=== PATIENT | female | born 1950 | race Caucasian/White ===

== ENCOUNTER 2020-01-26 03:57 | Inpatient (IN) | payer MEDICARE ==
[2020-01-26] VITALS (8 sets, daily range): BP systolic 143–229; BP diastolic 53–89
[~2020-01-26] VITALS: Ht 170.2 cm; Wt 105.2 kg
[2020-01-26] MEDS ORDERED: NORVASC 2.5 MG2.5 M1 PO (04:49)
[2020-01-26 05:04] LABS: ABSOLUTE BASOPHILS 0.1 thou/uL (0.0-0.2); ABSOLUTE LYMPHOCYTES 0.9 thou/uL (0.8-5.3); ABSOLUTE MONOCYTES 0.4 thou/uL (0.0-1.2); BASOPHILS 0.7 %; EOSINOPHILS 0.4 %; HEMATOCRIT 40.8 % (37.0-47.0); HEMOGLOBIN 13.8 gm/dL (12.0-15.0); LYMPHOCYTES 10.3 %; MCH 29.4 pg (26.0-34.0); MCHC 33.7 g/dL (28.0-37.0); MCV 87.1 fL (80.0-100.0); MONOCYTES 5.1 %; MPV 8.7 fl. (7.2-11.1); NUCLEATED RBCS 0 /100WBC; PLATELET COUNT* 292 thou/uL (150-400); POLYS 83.5 %; RBC 4.69 mil/uL (4.20-5.00); RDW-CV 14.2 % (10.5-14.5); WBC 8.4 thou/uL (4.0-11.0)
[2020-01-26 05:12] LABS: CALCIUM 7.7 mg/dL (8.5-10.1); CREATININE 0.9 mg/dL (0.6-1.3); POTASSIUM 3.5 mmol/L (3.5-5.1)
[2020-01-26 05:17] LABS: APTT 24.5 Seconds (25.0-31.3); PROTIME 10.3 Seconds (9.20-11.50)
[2020-01-26 05:23] LABS: ALBUMIN 3.2 g/dL (3.4-5.0); TOTAL BILIRUBIN 0.3 mg/dL (<0.1-1.0); TOTAL PROTEIN 6.9 g/dL (6.4-8.2)
[2020-01-26 06:10] LABS: URINE BILIRUBIN NEGATIVE (Negative); URINE BLOOD NEGATIVE (Negative); URINE CLARITY CLEAR; URINE COLOR YELLOW; URINE GLUCOSE-RANDOM NEGATIVE (Negative); URINE KETONES NEGATIVE (Negative); URINE LEUKOCYTES-REFLEX 1+ (Negative); URINE NITRITE-REFLEX NEGATIVE (Negative); URINE PROTEIN TRACE (Negative); URINE SPECIFIC GRAVITY 1.025 (1.005-1.030); URINE UROBILINOGEN 0.2 E.U./dl (0.2-1.0)
[2020-01-26 06:21] LABS: BACTERIA-REFLEX >30 Many /HPF (None Seen); CASTS None Seen /LPF (None Seen); CRYSTALS None Seen /LPF (None Seen); MUCUS 0-3 Light strn/LPF (None Seen); SQUAMOUS 0-3 Few /LPF (0-3); URINE RBC 3-10 Few /HPF (0-2); URINE WBC-REFLEX >25 Many /HPF (0-5); WBC CLUMPS Moderate (None Seen)
--- NOTE | 2020-01-26 11:22 | EKG ---
[place] [address] ELECTROCARDIOGRAM REPORT Name: POPEYE HONG Room: [address] ADM IN .R.#: [id number] Admission: 01/26/20 Attend Phys: August pastrana Sa Discharge: Date of : 54 Date of Service: 01/26/20 0359 Report #: [id number] THIS REPORT FOR: //name// [facility] ED Test Date: 2020-01-26 Test Time: 03:59:40 Pat Name: POPEYE HONG Department: Room: [facility] Gender: F Optical Effects Layout Person: ALICIA : 1950 Requested By: Kate Farley Order Number: [id number] MD: Isidro Young Measurements Intervals [place] Rate: 77 P: 31 TX: 189 QRS: 4 QRSD: 105 T: 80 QT: 430 QTc: 487 Interpretive Statements Sinus rhythm LVH with secondary repolarization abnormality Borderline prolonged QT interval No previous ECG available for comparison Electronically Signed On 01-26-2020 11:20:57 CDT by Isidro Young [email or web address] <ELECTRONICALLY SIGNED> By: Rosemarie Young MD, [facility] 01/26/20 1120 0359 0359 Rosemarie Young MD, [facility] /EPI
--- NOTE | 2020-01-26 16:24 | NUR ---
PATIENT RESTING IN BED. UP WITH MAX ASSIST X2 TO CHAIR OR BSC. LEFT ARM AND LEG WEAKNESS. GOOD SENSATION TO BILASTERAL ARMS AND LEGS. LEFT HAND CUSTOMER SUPPORT MANAGER GOOD BUT POOR RESISTANCE TO GRAVITY WITH LEFT ARM. VSS. PATIENT IN NO APPARENT SIGNS OF DISTRESS AT THIS TIME.
[2020-01-26 19:42] LABS: AMP/METHAMP Negative (Negative); BARBITURATES Negative (Negative); BENZODIAZEPINES Negative (Negative); COCAINE Negative (Negative); METHADONE Negative (Negative); OPIATES Negative (Negative); PCP Negative (Negative); THC Negative (Negative)
[2020-01-27 03:07] LABS: GLYCOHEMOGLOBIN (HGB A1C) 5.4 % (4.8-5.6)
[2020-01-27 04:00] VITALS: BP 164/70
--- NOTE | 2020-01-27 05:20 | NUR ---
PT SLEPT MOST OF SHIFT. ASSESSMENT DOCUMENTED. MEDS GIVEN PER E-DEC. IV PATENT, FLUIDS INFUSING. PT REPORTED KNEE PAIN, DR NOTIFIED. PT INCONTINENT AT TIMES THIS SHIFT. PT REPOSITIONED THROUGH NIGHT. NIH DOCUMENTED. WILL CONTINUE WITH PLAN OF CARE.
[2020-01-27 05:31] LABS: CHOLESTEROL 203 mg/dL (<200); HDL CHOLESTEROL 49 mg/dL (>40); LDL CHOLESTEROL 128 mg/dL (<100); TC:HDL 4.1 Ratio (Not establshd); TRIGLYCERIDE 134 mg/dL (<150); VLDL 27 mg/dL (<40)
[2020-01-27 05:49] LABS: SERUM ASSESSMENT CLEAR
[2020-01-27 07:57] VITALS: BP 178/72
[2020-01-27 13:00] VITALS: BP 192/166
[2020-01-27 16:30] VITALS: BP 179/62
--- NOTE | 2020-01-27 18:06 | NUR ---
PATIENT RESTING IN BED. LEFT SIDE WEAKNESS TO BOTH ARM AND LEG. FULL SENSATION, FULL LEFT HAND IMPREGNATION OPERATOR, WIGGLES LEFT TOES, LEFT SHOUDER WEAKNESS. VSS. HOURLY ROUNDING COMPLETED FOR PATIENT SAFETY.
[2020-01-27 19:50] VITALS: BP 139/64
[2020-01-28] VITALS: BP 177/69
[2020-01-28 04:00] VITALS: BP 183/74
[2020-01-28 04:47] LABS: ABSOLUTE BASOPHILS 0.1 thou/uL (0.0-0.2); ABSOLUTE EOSINOPHILS 0.1 thou/uL (0.0-0.7); ABSOLUTE LYMPHOCYTES 1.6 thou/uL (0.8-5.3); ABSOLUTE MONOCYTES 0.5 thou/uL (0.0-1.2); ABSOLUTE NEUTROPHILS 3.5 thou/uL (1.6-8.1); EOSINOPHILS 2.3 %; HEMATOCRIT 37.3 % (37.0-47.0); HEMOGLOBIN 12.6 gm/dL (12.0-15.0); LYMPHOCYTES 27.5 %; MCH 29.7 pg (26.0-34.0); MCHC 33.8 g/dL (28.0-37.0); MCV 87.8 fL (80.0-100.0); MONOCYTES 9.4 %; MPV 8.7 fl. (7.2-11.1); NUCLEATED RBCS 0 /100WBC; PLATELET COUNT* 249 thou/uL (150-400); POLYS 59.8 %; RBC 4.25 mil/uL (4.20-5.00); RDW-CV 14.2 % (10.5-14.5); WBC 5.8 thou/uL (4.0-11.0)
[2020-01-28 05:26] LABS: CALCIUM 7.9 mg/dL (8.5-10.1); CREATININE 0.7 mg/dL (0.6-1.3); POTASSIUM 3.6 mmol/L (3.5-5.1)
[2020-01-28 08:00] VITALS: BP 137/77
--- NOTE | 2020-01-28 09:38 | EKG ---
[place] [address] ELECTROCARDIOGRAM REPORT Name: POPEYE HONG Room: [address] ADM IN M.R.#: [id number] Admission: 01/26/20 Attend Phys: August pastrana Sa Discharge: Date of : 54 Date of Service: 01/26/20 0633 Report #: [id number] THIS REPORT FOR: //name// [facility] Test Date: 2020-01-26 Test Time: 06:33:47 Pat Name: POPEYE HONG Department: Room: [address] Gender: F Build Technician: : 1950 Requested By: August Moyer Order Number: [id number] Leonor MD: Umesh Lopez Measurements Intervals [place] Rate: 94 P: 48 KS: 201 QRS: 8 QRSD: 100 T: 193 QT: 379 QTc: 474 Interpretive Statements Sinus rhythm Repol abnrm suggests ischemia, anterolateral Compared to ECG 01/26/2020 03:59:40 Left ventricular hypertrophy no longer present Electronically Signed On 01-28-2020 9:37:00 CDT by Umesh Lopez [email or web address] <ELECTRONICALLY SIGNED> By: Umesh Lopez MD, [facility] 01/28/20 0937 0633 Umesh Lopez MD, [facility] /EPI
--- NOTE | 2020-01-28 11:42 | 2DMMODE ---
[place] [address] 2 D/M-MODE ECHOCARDIOGRAM Name: POPEYE HONG Room: [address] ADM IN .Kate.#: [id number] Admission: 01/26/20 Attend Phys: August pastrana Sa Discharge: Date of : 54 Date of Service: 01/28/20 1141 Report #: [id number] THIS REPORT FOR: cc: LAYA - No family physician/PCP LAYA - No family physician/PCP Umesh Lopez MD [facility] ~ APPROVED REPORT Study performed: 01/28/2020 10:21:07 EXAM: Comprehensive 2D, Doppler, and color-flow Echocardiogram Patient Location: In-Patient Room #: 229 Status: routine BSA: 2.15 HR: 74 bpm BP: 183/74 mmHg Rhythm: NSR Other Information Study Quality: Good Indications CVA/TIA Echo Enhancing Agent Indication: Rule out Shunt Agent(s) / Amount(s) Used: Agitated Saline 10 cc 2D Dimensions IVSd: 14.63 (7-11mm) LVOT Diam: 20.87 (18-24mm) LVDd: 55.44 mm PWd: 11.82 (7-11mm) Ascending Ao: 31.96 (22-36mm) LVDs: 35.62 (25-40mm) Aortic Root: 32.58 mm Volumes Left Atrial Volume (Systole) LA ESV Index: 41.00 mL/m2 Aortic Valve AoV Peak Bill.: 1.31 m/s AO Peak Gr.: 6.84 mmHg LVOT Max P.87 mmHg AO Mean Gr.: 3.81 mmHg LVOT Mean P.00 [place] [address] 2 D/M-MODE ECHOCARDIOGRAM Name: POPEYE HONG Room: [address] IN ..#: [id number] Admission: 01/26/20 Attend Phys: August pastrana Sa Discharge: Date of : 54 Date of Service: 01/28/20 1141 Report #: [id number] LVOT Max V: 1.10 m/s AO V2 VTI: 28.13 cm LVOT Mean V: 0.64 m/s SHEILA (VTI): 2.99 cm2 LVOT V1 VTI: 24.60 cm Mitral Valve E/A Ratio: 0.86 MV Decel. Time: 310.79 ms MV E Max Bill.: 0.60 m/s MV PHT: 90.13 ms MVA (PHT): 2.44 cm2 TDI E/Lateral E': 7.50 E/Medial E': 5.45 Medial E' Bill.: 0.11 m/s Lateral E' Bill.: 0.08 m/s Pulmonary Valve PV Peak Bill.: 1.16 m/s PV Peak Gr.: 5.39 mmHg Left Ventricle The left ventricle is normal size. There is normal LV segmental wall motion. Mild concentric left ventricular hypertrophy. Left ventricular systolic function is normal. The left ventricular ejection fraction is within the normal range. LVEF is 55-60%. The left ventricular diastolic function is normal. Right Ventricle The right ventricle is normal size. The right ventricular systolic function is normal. Atria Left atrium is mildly dilated. The interatrial septum is intact with no evidence for an atrial septal defect. The right atrium size is normal. Aortic Valve Mild aortic valve sclerosis. No aortic regurgitation is present. There is no aortic valvular stenosis. Mitral Valve The mitral valve is normal in structure. There is no mitral valve regurgitation noted. No evidence of mitral valve stenosis. Tricuspid Valve The tricuspid valve is normal in structure. Trace tricuspid regurgitation. Unable [place] [address] 2 D/M-MODE ECHOCARDIOGRAM Name: POPEYE HONG Room: [address] IN M.R.#: [id number] Admission: 01/26/20 Attend Phys: August pastrana Sa Discharge: Date of : 54 Date of Service: 01/28/20 1141 Report #: [id number] Pulmonic Valve The pulmonary valve is normal in structure. Trace pulmonic regurgitation. Great Vessels The aortic root is normal in size. IVC is normal in size and collapses >50% with inspiration. Pericardium There is no pericardial effusion. <Conclusion> Mild concentric left ventricular hypertrophy. LVEF is 55-60%. Left atrium is mildly dilated. Mild aortic valve sclerosis. The interatrial septum is intact with no evidence for an atrial septal defect. <ELECTRONICALLY SIGNED> By: Umesh Lopez MD, FACC 01/28/20 1141 1141 1141 Umesh Lopez MD, FACC /INF
[2020-01-28 12:00] VITALS: BP 173/79
--- NOTE | 2020-01-28 16:13 | NUR ---
Pt is A&O. Resides at home alone. Independent. No DME. No hx of HH or SNF. Pt discharging to acute rehab today to room 325, CM updated Pt's dtr and dtr in agreement POC. CM also confirmed with dtr that dtr would be available post dc if Pt needs additional 24 care.
[2020-01-28] MEDS ORDERED: NORVASC10 MG PO (16:27)
--- NOTE | 2020-01-28 16:46 | NUR ---
PT RESTING IN BED THROUGHOUT SHIFT. PT UP WITH PT TO CHAIR. PT MODERATE ASSIST WITH TRANSFER. VOIDING PER BEDPAN. PT TOLERATING PO WELL. DENIES PAIN. ABLE TO MOVE RIGHT HAND AND GRASP BUT UNABLE TO MOVE ARM OT RLE. PLAN TO MOVE TO REHAB UNIT THIS PM
[2020-01-28] MEDS ORDERED: LIPITOR40 MG PO (16:57)
[2020-01-28 16:58] VITALS: BP 195/75
[2020-01-28] MEDS ORDERED: ASA81BEC PO (16:59)
[2020-01-28] MEDS ORDERED: COZAAR 25 MG TA25 M1 PO (17:01)
[2020-01-28] MEDS ORDERED: CEFUROXIME500 MG PO (17:02)
[2020-01-28 17:57] VITALS: BP 195/75
== END 2020-01-28 18:23 | DRG 65 ==
LOC: M.ERS 03:57 → M.TBA-ER 05:28 → M.2W 05:28
PROVIDERS: Internal Medicine; Personal Emergency Response Attendant; ADMIT Family Medicine
DX: I63.9 Cerebral infarction, unspecified (principal); G81.94 Hemiplegia, unspecified affecting left nondominant side; I16.1 Hypertensive emergency; F41.9 Anxiety disorder, unspecified; I10 Essential (primary) hypertension; Z79.899 Other long term (current) drug therapy; Z91.09 Other allergy status, other than to drugs and biological substances

== ENCOUNTER 2020-01-28 17:05 | Inpatient (IN) | payer MEDICARE ==
[~2020-01-28] VITALS: Ht 170.2 cm; Wt 98.9 kg
[~2020-01-28 17:05] MED LIST: ASA81BEC PO; CEFUROXIME500 MG PO; COZAAR 25 MG TA25 M1 PO; LIPITOR40 MG PO; NORVASC 2.5 MG2.5 M1 PO; NORVASC10 MG PO
[2020-01-28 19:05] VITALS: BP 180/70
--- NOTE | 2020-01-28 23:24 | NUR ---
ARRIVED ON DAY SHIFT AT 1835. ADMISSION REHAB TOOL COMPLETED. VOIDS PER BEDPAN. ADMITTED WITH RIGHT CVA. HAS LEFT HEMIPARESIS. PATIENT IS RIGHT HANDED. A/O X 4. VERY PLEASANT.
--- NOTE | 2020-01-29 05:10 | NUR ---
ASSISTED WITH URINAL X ONE DURING THE NIGHT. DESIRAE CARE GIVEN. HOURLY ROUNDING IN PROGRESS.
[2020-01-29 06:47] LABS: HEMATOCRIT 38.1 % (37.0-47.0); HEMOGLOBIN 13.1 gm/dL (12.0-15.0); MCH 29.9 pg (26.0-34.0); MCHC 34.3 g/dL (28.0-37.0); MCV 87.3 fL (80.0-100.0); MPV 8.7 fl. (7.2-11.1); RBC 4.37 mil/uL (4.20-5.00); RDW-CV 14.6 % (10.5-14.5)
[2020-01-29 06:56] LABS: CALCIUM 8.4 mg/dL (8.5-10.1); CREATININE 0.8 mg/dL (0.6-1.3); POTASSIUM 3.2 mmol/L (3.5-5.1)
[2020-01-29 09:30] VITALS: BP 182/66
--- NOTE | 2020-01-29 12:27 | NUR ---
Nutrition: Pt admitted to rehab s/p Rt CVA. She is eating well, heart healthy diet. Albumin 3.2. Wt: 226#. No noted significant wt changes. Per report over phone, pt is eating well. No nutrition concerns at this time. Low risk.
--- NOTE | 2020-01-29 16:44 | NUR ---
Initial assessment for inpt rehab: Pt lived at home alone prior to hospitalization. Pt has supportive dtr who would be able to assist at dc if needed. Pt does not have any DME or any known hx of HH or SNF. SW to continue to follow to assist with safe dc planning.
[2020-01-29 18:30] VITALS: BP 149/63
--- NOTE | 2020-01-29 18:43 | NUR ---
ALERT AND ORIENTED X4. UP WITH 2 ASSIST, GAIT BELT AND WALKER. NO C/O PAIN. CONTINENT OF URINE. HAS LEFT SIDED WEAKNESS. REPLACING LOW MAGNESIUM AND POTASSIUM. USES CALL LIGHT WITHIN REACH. FALL PRECAUTIONS IN PLACE. BED ALARM AND CHAIR ALARM USED. HAS IV IN LEFT AC.
[2020-01-29 19:50] VITALS: BP 161/72
--- NOTE | 2020-01-30 01:52 | NUR ---
ASSUMED CARE @ 1936-.AWAKE IN BED W/ HOB UP.WEAK-LUE & LEFT LE. WATCHING TV.BED ALARM ALREADY ON @ 1936.2ND DOSES OF K TAB & MG OXIDE TAB BOTH GIVEN ORAL @ 2207.C/O ITCHING-BACK.NOTED RAISED RASHES.WANTS WARM TOWEL ON RASHES & APPLIED.WARM LOTION ALSO APPLIED @ 2244.HIMS CALLED W/ YOU CALL . DR ALVAREZ RETURNED CALL @ 230 & ORDER GIVEN.BENADRYL 25 MG ORAL GIVEN @ 2346.SLEEPING @ 0000-.ON HOURLY ROUNDS.DISHA DOINMG ODD HOUR ROUNDS.
--- NOTE | 2020-01-30 05:23 | NUR ---
SLEPT LATE @ 0000-01/29-TUE & SLEEPING GOOD ALL NIGHT.TOOK ONLY 20% BLACK COFFEE HS SNACK.FAVORS LYING LEFT SIDE ALL NIGHT.USED BEDPAN X1 ONLY W/ ASSIST FOR VOIDING.
[2020-01-30 08:00] VITALS: BP 182/69
[2020-01-30 09:16] LABS: MAGNESIUM 1.9 mg/dL (1.8-2.4); POTASSIUM 3.7 mmol/L (3.5-5.1)
--- NOTE | 2020-01-30 11:31 | NUR ---
SW called pt dtr Hodan and spoke with her to introduce self and SW role on inpt rehab unit as well as prepare for team conference. Pt dtr wants to know more about pt stroke and medicines. SW to discuss with team. SW to continue to follow to assist with safe dc planning.
--- NOTE | 2020-01-30 17:51 | NUR ---
ALERT AND ORIENTED X4. UP WITH 2 ASSIST, GAIT BELT AND WALKER. NO C/O PAIN. RASH ON BACK BETTER AND PATIENT STATED NOT ITCHING NOW, ONLY SLIGHTLY PINK. DR NOTIFIED OF B/P. USES CALL LIGHT WHEN NEED ASSIST. FALL PRECAUTIONS IN PLACE. BED ALARM AND CHAIR ALARM USED.
[2020-01-30 20:05] VITALS: BP 154/55
--- NOTE | 2020-01-30 21:15 | NUR ---
AWAKENED FOR REASSESSMENT AND MEDICATION PASS. TOOK MEDICATIONS WHOLE ONE AT A TIME WITH WATER. NO COMPLAINTS VOICED. CALL LIGHT WITHIN REACH.
--- NOTE | 2020-01-31 05:25 | NUR ---
RESTED QUIETLY. HOURLY ROUNDING IN PROGRESS.
[2020-01-31 07:12] VITALS: BP 171/70
--- NOTE | 2020-01-31 09:45 | NUR ---
TAYLOR called pt dtr Hodan to review team conference summary and plan for pt to remain on rehab unit at least another week to continue therapies and then for team to reassess pt length of stay during team conference next Tuesday. Pt dtr okay with plan. Pt dtr did receive calls from Dr Holm and a neurologist as SW asked to be able to follow up with dtr about dtr's medical questions related to stroke and medications. Pt dtr did not have any comments or questions at this time. SW to continue to follow to assist with safe dc planning.
--- NOTE | 2020-01-31 16:30 | NUR ---
ASSUMMED CARE OF PT AT 0730, PT ALERT AND ORIENTED, PT TRANSFERS WITH ASSIST OF 2 GB STAND AND PIVOT, LEFT LEG FLACCID, SOME MOVEMENT IN LEFT ARM, TAKING FOOD AND FLUIDS WELL, DENIES PAIN, SALINE LOCK TO LEFT AC DISCONTINUED, DAUGHTER REQUESTING TO TALK WITH PHYSICIAN TO WHAT CAUSED STROKE, PHYSICIAN INFORMED, PT VOIDS PER COMMODE/BEDPAN, PT HAD MRA THIS PM, PARTICIPATED IN ALL THERAPIES, HOURLY ROUNDING COMPLETED, ASSESSMENT COMPLETE, WILL CONTINUE TO MONITOR.
[2020-01-31 20:23] VITALS: BP 156/66
--- NOTE | 2020-02-01 05:10 | NUR ---
PT A&O, ON RA. MEDS GIVEN ORDERED. BENEDRYL GIVEN FOR ITCHY BACK, LOTION ALSO APPLIED PER PT REQUEST. PT DENIED PAIN. HOURLY ROUNDINGS, TURNS COMPLETED. WILL CONTINUE TO MONITOR.
[2020-02-01 07:56] VITALS: BP 130/59
--- NOTE | 2020-02-01 17:12 | NUR ---
ASSUMMED CARE OF PT AT 0730, PT ALERT AND ORIENTED, TRANSFERS WITH ASSIST OF 1, GB WITH A STAND PIVOT, VOIDS PER COMMODE, LARGE BM X 1, DENIES PAIN, TAKING FOOD AND FLUIDS WELL, LEFT SIDE WEAK, PARTICIPATED IN ALL THERAPIES, HOURLY ROUNDING COMPLETED, ASSESSMENT COMPLETE, WILL CONTINUE TO MONITOR.
[2020-02-01 20:14] VITALS: BP 148/83
--- NOTE | 2020-02-02 05:12 | NUR ---
PATIENT SLEPT WELL DURING THIS SHIFT. PT WITH WEAKNESS ON LT SIDE. PT USES CALL LIGHT FOR BEDPAN. PT UNABLE TO ASSIST WITH GETTING PANTS AND UNDERWEAR DOWN OR ASSIST WITH TURN TO BE PUT ON BEDPAN. PT ALSO UNABLE TO ASSIST WITH GETTING PANTS BACK IN PLACE AFTER VOIDING. PT VOIDS CLEAR YELLOW URINE. PT DENIES PAIN DURING THIS SHIFT. FREQUENTLY USED ITEMS AND CALL LIGHT WITHIN REACH. SIDERAILS UPX4 AND BED ALARM ON. WILL CONTINUE TO MONITOR.
[2020-02-02 08:00] VITALS: BP 159/60
--- NOTE | 2020-02-02 14:55 | NUR ---
ASSUMED CARE AT 0730. ALERT ORIENTED PLEASANT COOPERATIVE. HX OF CVA L SIDE WEAKNESS. TRANSFERS FROM BED TO BSC WITH G BELT STAND PIVOT. VOIDS ABLE TO DO HYGEINE NEEDS SOME ASSIST WITH CLOTHING ADJUSTMENTS. DENIES PAIN OR CONCERNS. PARTICIPATING IN THERAPIES.
[2020-02-02 20:29] VITALS: BP 164/51
--- NOTE | 2020-02-03 00:48 | NUR ---
ASSUMED CARE @ 1944-02/01-SAT.AWAKE IN BED W/ HOB UP ON HER LEFT SIDE.LUE UP ON A PILLOW @ 1944.BED ALARM PUT ON @ 1944.WEAK-LUE & LEFT LE.ON HOURLY ROUNDS. ULTRASONIC TESTER DOING ODD HOUR ROUNDS.
--- NOTE | 2020-02-03 05:25 | NUR ---
SLEEPING SINCE 2200 & SLEPT GOOD ALL NIGHT.AWAKE ONCE @ 0450 TO USE BSC 2ND TIME W/ ASSIST.ABLE TO DO HYGIENE AFTER VOIDING.REFUSED HS SNACK.
[2020-02-03 08:00] VITALS: BP 199/72
--- NOTE | 2020-02-03 17:15 | NUR ---
ASSUMED CARE AT 0730. ALERT ORIENTED PLEASANT COOPERATIVE. HX OF CVA L SIDE WEAKNESS. TRANSFERS WITH 1 ASSIST G BELT FROM BED TO W/C. TRANSFERRED FROM W/C TO BR TOILET FOR VOID AND BM ABLE TO DO HYGEINE BUT NEEDS ASSIST TO ADJUST CLOTHING. FEEDS SELF DENIES PAIN OR CONCERNS. USES CALL LIGHT APPROPRIATELY FOR ASSIST. HOURLY ROUNDING COMPLETED TODAY.
[2020-02-03 20:00] VITALS: BP 154/60
--- NOTE | 2020-02-04 05:14 | NUR ---
ASSUMED CARES AT 1920. ALERT AND ORIENTED. PLEASANT. DENIED ANY PAIN. CVA WITH LEFT SIDE WEAKNESS. MIN ASSIST WITH GAIT BELT AND WALKER. UP TO BR OR BSC. SLEPT MOST OF THE NIGHT. CALL LIGHT IN REACH AND BED ALARM ON.
[2020-02-04 08:55] VITALS: BP 168/72
--- NOTE | 2020-02-04 18:03 | NUR ---
ASSUMED CARE AT 0730. ALERT ORIENTED PLEASANT COOPERATIVE. HX OF CVA. TRANSFERS WITH 1 ASSIST G BELT FROM BED TO W/C. DENIES PAIN WORKING WITH THERAPIES. UP IN RECLINER THIS AFTERNOON. USES CALL LIGHT APPROPRIATELY. TAKES MEDS FEEDS SELF. ABLE TO MOVE BOTH UPPER EXTREMETIES ABOVE HER HEAD. HOURLY ROUNDING COMPLETED THIS SHIFT.
[2020-02-04 19:15] VITALS: BP 138/73
--- NOTE | 2020-02-05 01:49 | NUR ---
ASSUMED CARE AT 1930. PATIENT RESTING IN RECLINER UNTIL AROUND 2099. UP WITH GAIT BELT, WALKER. PATIENT UNSTEADY AT TIMES, NEEDS HAND ON ASSIST. VOIDS PER TOILET. NEEDS ASSIST WITH PERICARE. TAKES PILLS WHOLE WITH WATER. 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 MOVES ALL EXTREMITES, BUT STATES HER LEFT LEG IS NUMB. HOURLY ROUNDS CONTINUE. BED ALARM ON. CALL LITE IN REACH.
--- NOTE | 2020-02-05 05:30 | NUR ---
SLEPT MOST OF THE NIGHT. TURNS SELF. HOURLY ROUNDS CONTINUE. BED ALARM ON. CALL LITE IN REACH.
[2020-02-05 08:00] VITALS: BP 159/58
--- NOTE | 2020-02-05 16:16 | NUR ---
ASSUMMED CARE OF PT AT 0730, PT ALERT AND ORIENTED, PT TRANSFERS WITH ASSIST OF 1, GB WALKER, AMBULATES TO BATHROOM, LARGE BM X 1, DENIES PAIN, UP IN CHAIR ALL SHIFT, TAKING FOOD AND FLUIDS WELL, PARTCIPATED IN ALL THERAPIES, HOURLY ROUNDING COMPLETED, ASSESSMENT COMPLETED, WILL CONTINUE TO MONITOR.
[2020-02-05 19:15] VITALS: BP 173/54
--- NOTE | 2020-02-05 20:50 | NUR ---
SITTING UP ON SIDE OF BED. AMBULATED TO THE BATHROOM WITH CGA, WALKER. HAS LEFT HEMIPARESIS. MOVES LEFT LEG SLOWLY. CALL LIGHT WITHIN REACH. DENIES PAIN.
--- NOTE | 2020-02-06 04:42 | NUR ---
RESTED QUIETLY. HOURLY ROUNDING IN PROGRESS.
[2020-02-06 08:00] VITALS: BP 172/65
[2020-02-06 09:34] VITALS: BP 172/65
--- NOTE | 2020-02-06 16:49 | NUR ---
Team conference held today. SW called pt dtr to review team conference summary and plan to reteam but no answer and voicemail box not set up. Team to reassess pt length of stay during team conference next Tuesday. SW to continue to follow to assist with safe dc planning.
[2020-02-06 19:00] VITALS: BP 154/53
--- NOTE | 2020-02-07 02:18 | NUR ---
ASSUMED CARE @ 1939-.SITS UP IN BED W/ HOB UP 90 DEGREES.WATCHING TV. BED ALARM PUT ON @ 1939.TURNS SELF @ NIGHT.ON HOURLY ROUNDS.BLOW MOLDER DOING ODD HOUR ROUNDS.
--- NOTE | 2020-02-07 05:12 | NUR ---
SLEPT LATE @ -02/06- & SLEEPING GOOD ALL NIGHT.TURNS SELF @ NIGHT. INCREASED STRENGTH LUE & LEFT LE.BRP W/ ASSIST X2.REFUSED HS SNACK.
[2020-02-07 08:00] VITALS: BP 151/82
--- NOTE | 2020-02-07 18:18 | NUR ---
AM ASSESSMENT AND VITAL SIGNS COMPLETED DOCUMENTED. PT WORKED WITH ALL THERAPIES AND CONTINUES TO PROGRESS TOWARD DISCHARGE GOALS. FALL PRECAUTIONS AND HOURLY ROUNDING CONTINUE.
[2020-02-07 20:00] VITALS: BP 163/43
--- NOTE | 2020-02-08 01:32 | NUR ---
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
--- NOTE | 2020-02-08 05:21 | NUR ---
SLEEPING SINCE 2200 & SLEPT GOOD ALL NIGHT.BRP W/ SBA X1.TOOK BLACK COFFEE & VANILLA PUDDING HS SNACKS.
[2020-02-08 07:00] VITALS: BP 158/78
--- NOTE | 2020-02-08 15:52 | NUR ---
ASSUMMED CARE OF PT AT 0730, PT TRANSFERS WITH ASSIST OF 1, GB WALKER, AMBULATES TO BATHROOM TO VOID, DENIES PAIN, TAKING FOOD AND FLUIDS WELL, PARTICIPATED IN ALL THERAPIES, UP IN CHAIR MOST OF SHIFT, HOURLY ROUNDING COMPLETED, ASSESSMENT COMPLETE, WILL CONTINUE TO MONITOR.
[2020-02-08 19:40] VITALS: BP 122/62
--- NOTE | 2020-02-08 20:45 | NUR ---
RESTING IN BED. CALL LIGHT WITHIN REACH. DENIES ANY NEEDS.
--- NOTE | 2020-02-09 05:52 | NUR ---
RESTED QUIETLY. HOURLY ROUNDING IN PROGRESS.
[2020-02-09 07:00] VITALS: BP 127/64
--- NOTE | 2020-02-09 18:20 | NUR ---
PT A&Ox4. VITALS STABLE. UP WITH STB ASSIST. TOLERATING DIET. DENIED PAIN. FALL PRECAUTIONS IN PLACE. CALL LIGHT WITHIN REACH. WILL CONTINUE TO MONITOR.
[2020-02-09 20:10] VITALS: BP 148/55
[2020-02-10 04:27] LABS: HEMATOCRIT 36.5 % (37.0-47.0); HEMOGLOBIN 12.4 gm/dL (12.0-15.0); MCH 29.8 pg (26.0-34.0); MCHC 33.8 g/dL (28.0-37.0); MCV 88.2 fL (80.0-100.0); MPV 8.7 fl. (7.2-11.1); RBC 4.14 mil/uL (4.20-5.00); WBC 5.7 thou/uL (4.0-11.0)
[2020-02-10 04:46] LABS: CALCIUM 8.4 mg/dL (8.5-10.1); CREATININE 0.7 mg/dL (0.6-1.3); MAGNESIUM 1.8 mg/dL (1.8-2.4); POTASSIUM 4.1 mmol/L (3.5-5.1); TOTAL BILIRUBIN 0.3 mg/dL (<0.1-1.0); TOTAL PROTEIN 6.5 g/dL (6.4-8.2)
--- NOTE | 2020-02-10 06:29 | NUR ---
PATIENT SLEPT MOST OF THE NIGHT. PATIENT WAS GIVEN TYLENOL ONCE FOR PAIN. WILL CONTINUE TO MONITOR.
[2020-02-10 07:30] VITALS: BP 146/44
--- NOTE | 2020-02-10 17:24 | NUR ---
PT A&Ox4. VITALS STABLE. UP WITH STB ASSIST. WALKED HALLS TODAY. DENIED PAIN. TOLERATING DIET. FALL PRECAUTIONS IN PLACE. CALL LIGHT WITHIN REACH. WILL CONTINUE TO MONITOR.
[2020-02-10 19:00] VITALS: BP 148/68
--- NOTE | 2020-02-10 19:35 | NUR ---
SITTING UP IN BE BED. DENIES DISCOMFORT. CALL LIGHT WITHIN REACH. DENIES NEEDS.
--- NOTE | 2020-02-11 04:57 | NUR ---
AMBULATES TO THE BATHROOM WITH SBA, GAITBELT, WALKER. DOES OWN HYGIENE AND CLOTHING ADJUSTMENTS. DID OWN ORAL CARE PRIOR TO GOING TO BED. RESTED QUIETLY. HOURLY ROUNDING IN PROGRESS.
[2020-02-11 07:56] VITALS: BP 165/57
--- NOTE | 2020-02-11 19:06 | NUR ---
ASSUMED CARE AT 0730. ALERT ORIENTED PLEASANT COOPERATIVE. HX OF CVA TRANSFERS WITH SBA G BELT WALKER AMBULATES TO TOILET. DENIES PAIN OR REQUESTS. PARTICIPATED IN THERAPIES. USES CALL LIGHT APPROPRIATELY FOR ASSIST. APPETITE GOOD FEEDS SELF. HOURLY ROUNDING COMPLETED.
[2020-02-11 19:15] VITALS: BP 151/71
--- NOTE | 2020-02-12 05:09 | NUR ---
ASSUMED CARE AT 1920. ALERT AND ORIENTED. PLEASANT. DENIED ANY PAIN. MIN ASSIST WITH GAIT BELT AND WALKER UP TO BATHROOM. SLEPT WELL. CALL LIGHT IN REACH AND BED ALARM ON.
[2020-02-12 08:00] VITALS: BP 193/67
--- NOTE | 2020-02-12 17:56 | NUR ---
ASSUMED CARE AT 0730. ALERT ORIENTED PLEASANT COOPERATIVE. HX OF CVA ABLE TO MOVE ALL EXTREMETIES. TRANSFERS WITH SBA G BELT WALKER AMBULATES TO BR TO VOID HAD MOD BM ABLE TO DO HYGEINE AND CLOTHING ADJUSTMENTS. PARTICIPATING IN THERAPIES. DENIES PAIN OR CONCERNS. USES CALL LIGHT APPROPRIATELY FOR ASSIST. HOURLY ROUNDING COMPLETED.
[2020-02-12 19:00] VITALS: BP 154/67
--- NOTE | 2020-02-13 06:42 | NUR ---
ASSUMED CARES AT 1920. ALERT AND ORIENTED. PLEASANT. DENIED ANY PAIN. MIN ASSIST WITH GAIT BELT AND WALKER. UP TO BATHROOM. SLEPT WELL. NO ISSUES OVERNIGHT.
[2020-02-13 08:31] VITALS: BP 151/61
--- NOTE | 2020-02-13 16:10 | NUR ---
PT REMAINED ALERT AND ORIENTED. PT WORKED WELL WITH THERAPY TODAY. NO COMPLAINTS OF PAIN. POSSIBLE DC TUESDAY OR TUESDAY IF PROGRESSING WITH THERAPY WELL. FALL RISK PRECAUTIONS IN PLACE. HOURLY ROUNDING COMPLETED. WILL CONTINUE TO MONITOR.
--- NOTE | 2020-02-13 17:12 | NUR ---
SW called pt dtr Hodan to review team conference summary and dc planning. SW explained team's recommendation of pt possibly to remain on rehab unit one more week with reteam and dc next Monday 02/19 or Tuesday if pt ready to dc sooner. Pt dtr requested for Tuesday and explained that pt does not technically have a home to live in at the moment and requested SW to assist in finding pt housing. SW provided list of resources for ILF/senior housing as pt only makes 1200/month and could not afford assisted living. Pt dtr said that she plans to return to work soon and would not be able to stay with pt but would be available 02/19 for pt dc. Pt needs PCP options as well, might change from seeing someone once at [facility], possibly Vahid Carvajal? Will need this info in order to be able to arrange HH services [place]. SW to continue to follow to assist with safe dc planning.
[2020-02-13 20:18] VITALS: BP 152/72
--- NOTE | 2020-02-14 01:19 | NUR ---
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
--- NOTE | 2020-02-14 05:12 | NUR ---
SLEPT LATE @ 0000-02/13-.SLEEPING GOOD ALL NIGHT.REFUSED HS SNACK.BRP W/ SBA X3.
[2020-02-14 08:00] VITALS: BP 173/70
--- NOTE | 2020-02-14 18:48 | NUR ---
PATIENT A&OX4. VSS. LUNG SOUNDS CLEAR. PATIENT CAN USE CANE TO AMBULATE PER PHYSICAL THERAPY BUT STILL NEEDS STANDBY ASSIST. PATIENT IN CHAIR. CALL LIGHT IN REACH.
[2020-02-14 19:48] VITALS: BP 161/88
--- NOTE | 2020-02-14 20:20 | NUR ---
SITTING UP IN RECLINER WATCHING TV. IN GOOD SPIRITS. DENIES NEEDS. CALL LIGHT WITHIN REACH.
--- NOTE | 2020-02-15 05:51 | NUR ---
UP X ONE DURING THE NIGHT TO THE BATHROOM TO VOID. HOURLY ROUNDING IN PROGRESS.
[2020-02-15 07:30] VITALS: BP 166/66
--- NOTE | 2020-02-15 18:56 | NUR ---
ALERT AND ORIENTED X4. UP WITH STAND BY ASSIST, GAIT BELT AND CANE. ABLE TO AMBULATE IN HALLWAY WITH STAND BY ASSIST, GAIT BELT AND CANE. DENIES NEED FOR PAIN MEDICATION. TAKES PILLS WITHOUT DIFFICULTY. FALL PRECAUTIONS IN PLACE. BED ALARM AND CHAIR ALARM USED. USES CALL LIGHT WHEN NEEDING ASSIST.
[2020-02-15 20:00] VITALS: BP 152/54
--- NOTE | 2020-02-16 01:44 | NUR ---
ASSUMED CARE @ 1932-02/14-TUESDAY.SITS IN RECLINER W/ LE'S UP WATCHING TV. 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
--- NOTE | 2020-02-16 05:15 | NUR ---
SLEEPING SINCE 2200 & SLEPT GOOD ALL NIGHT.REFUSED HS SNACK.BRP X2 W/ SBA DURING NIGHT.
[2020-02-16 08:27] VITALS: BP 143/52
--- NOTE | 2020-02-16 16:26 | NUR ---
ASSUMMED CARE OF PT AT 07, PT TRANSFERS WITH ASSIST OF 1, GB AND CANE, PT GAIT DID FALTER A FEW TIMES, PT SELF CORRECTED, AMBULATES TO BATHROOM, LARGE BM X 1 THIS SHIFT, VOIDS WITHOUT DIFFICULTY, TAKING FOOD AND FLUIDS WELL, DENIES PAIN, PT UP IN CHAIR MOST OF SHIFT, HOURLY ROUNDING COMPLETED, ASSESSMENT COMPLETE, WILL CONTINUE TO MONITOR.
[2020-02-16 20:00] VITALS: BP 189/76
--- NOTE | 2020-02-17 05:18 | NUR ---
ASSUMED CARE AT 1920. ALERT AND ORIENTED. PLEASANT. DENIED ANY PAIN. MIN ASSIST WITH GAIT BELT AND CANE. UP TO BR. DOES OWN CARES. NO ISSUES OVERNIGHT. CALL LIGHT IN REACH AND BED ALARM ON.
[2020-02-17 08:00] VITALS: BP 154/52
--- NOTE | 2020-02-17 16:33 | NUR ---
ASSUMMED CARE OF PT AT 0730, PT ALERT AND ORIENTED, PT TRANSFERS WITH ASSIST OF 1, GB CANE, AMBULATES TO BATHROOM TO VOID, LG BM X 1, AMBULATED AROUND UNIT AND 3W WITH ASSIST, DENIES PAIN, TAKING FOOD AND FLUIDS WELL, UP IN CHAIR MOST OF SHIFT, HOURLY ROUNDING COMPLETED, ASSESSMENT COMPLETE, WILL CONTINUE TO MONITOR.
[2020-02-17 20:00] VITALS: BP 171/68
--- NOTE | 2020-02-18 05:14 | NUR ---
ASSUMED CARES AT 1920. ALERT AND ORIENTED. PLEASANT. CVA WITH LEFT SIDE WEAKNESS. DENIED ANY PAIN. SBA WITH GAIT BELT AND WALKER. UP TO BATHROOM. DOES OWN CARES. SLEPT WELL. CALL LIGHT IN REACH.
[2020-02-18 19:15] VITALS: BP 112/69
--- NOTE | 2020-02-19 05:18 | NUR ---
ASSUMED CARE AT 1920. ALERT AND ORIENTED. PLEASANT. DENIED ANY PAIN. SBA WITH GAIT BELT AND CANE. UP TO BATHROOM. SLEEPING IN REGULAR BED. NO ISSUES OVERNIGHT. CALL LIGHT IN REACH.
[2020-02-19 07:58] LABS: CALCIUM 9.3 mg/dL (8.5-10.1); CREATININE 0.9 mg/dL (0.6-1.3); MAGNESIUM 1.9 mg/dL (1.8-2.4); POTASSIUM 3.8 mmol/L (3.5-5.1)
[2020-02-19 08:15] VITALS: BP 171/58
--- NOTE | 2020-02-19 13:14 | NUR ---
TAYLOR called pt dtr Hodan in preparation for team conference tomorrow and to follow up about dc planning for tomorrow. Pt dtr did not answer so SW left detailed message and requested call back with any questions or comments. TAYLOR called pt to discuss dc planning and pt said she felt ready to dc tomorrow and planned to be able to return to home alone and was okay with services to follow. TAYLOR received call back from pt dtr who said that she did not secure a different apt for pt yet and the option was there for pt to return to home alone in [place], [place] or if absolutely needed, to home with dtr or SNF if pt unable to be alone. SW to continue to follow to assist with finalizing safe dc plan.
--- NOTE | 2020-02-19 16:45 | NUR ---
ASSUMMED CARE OF PT AT 0730, PT ALERT AND ORIENTED, PT TRANSFERS WITH SBA, GB CANE, AMB TO BATHROOM, DENIES PAIN, TAKING FOOD AND FLUIDS WELL, UP IN CHAIR ALL SHIFT, PARTICIPATED IN ALL THERAPIES, HOURLY ROUNDING COMPLETED, ASSESSMENT COMPLETE, WILL CONTINUE TO MONITOR.
[2020-02-19 19:15] VITALS: BP 156/74
[2020-02-20 08:45] VITALS: BP 189/60
[2020-02-20 13:49] VITALS: BP 189/60
[2020-02-20] MEDS ORDERED: PLAVIX 75 MG TA75 MG PO (14:09)
[2020-02-20] MEDS ORDERED: HYDROCHLOROTHIA25 M2 PO (14:11)
[2020-02-20] MEDS ORDERED: VITAMIN B12-FO1 EAC1 PO (14:14)
[2020-02-20 15:19] VITALS: BP 189/60
--- NOTE | 2020-02-20 16:23 | NUR ---
AM ASSESSMENT AND VITAL SIGNS COMPLETED DOCUMENTED. PT COMPLETED AM THERAPIES AND HAS MET HER DISCHARGE GOALS. [facility] PROVIDED TO PATIENT FOR HOME. DISCHARGE INSTRUCTIONS AND MEDICATIONS DISCUSSED WITH PATIENT. PATIENT WAS PROVIDED WITH A LIST OF PCP's AND ENCOURAGED TO ESTABLISH CARE SOON POSSIBLE. NEW MEDICATIONS CALLED TO [facility]. PT AND BELONGINGS TRANSPORTED TO EXIT VIA WHEELCHAIR, DISCHARGED HOME IN STABLE CONDITION.
--- NOTE | 2020-02-20 16:50 | NUR ---
Team conference held today. TAYLOR called pt dtr Hodan and reviewed team conference summary and plan for pt to dc home with dtr today. Pt dtr and pt okay with RW, ordered through [facility], issued by PT. TAYLOR arranged HH services with pt preference of [facility]. Pt dtr to provide pt ride home.
== END 2020-02-20 16:31 | disposition home health service (06) | DRG 65 ==
LOC: M.REH 17:05
PROVIDERS: Internal Medicine; ADMIT Physical Medicine & Rehabilitation
DX: I63.9 Cerebral infarction, unspecified (principal); I16.1 Hypertensive emergency; I10 Essential (primary) hypertension; E66.9 Obesity, unspecified; Z60.2 Problems related to living alone; F41.9 Anxiety disorder, unspecified; E53.8 Deficiency of other specified B group vitamins; E78.5 Hyperlipidemia, unspecified; M19.012 Primary osteoarthritis, left shoulder; K59.00 Constipation, unspecified; M75.102 Unspecified rotator cuff tear or rupture of left shoulder, not specified as traumatic; M50.30 Other cervical disc degeneration, unspecified cervical region; Z68.34 Body mass index [BMI] 34.0-34.9, adult; Z79.899 Other long term (current) drug therapy; Z79.82 Long term (current) use of aspirin